=== PATIENT | male | born 1985 | race Two or more races ===

== ENCOUNTER 2019-07-13 15:12 | Emergency (ER) | payer MEDICAID, OTHER ==
[~2019-07-13] VITALS: Ht 175.3 cm; Wt 83.9 kg
[2019-07-13 15:24] VITALS: BP 147/98
[2019-07-13] MEDS ORDERED: KETOROLAC TROMETH 60MG/2ML VIAL IM ONE (16:30)
[2019-07-13] MEDS ORDERED: diphenhdrAMINE HCL 50 MG/1 ML VL IM ONE (16:30)
== END 2019-07-13 16:56 | disposition home or self-care (01) ==
LOC: ER 15:12
DX: S29.011A Strain of muscle and tendon of front wall of thorax, initial encounter (principal); V43.52XA Car driver injured in collision with other type car in traffic accident, initial encounter; Y93.I9 Activity, other involving external motion; Y92.410 Unspecified street and highway as the place of occurrence of the external cause; Y99.8 Other external cause status
CPT/HCPCS: 71101; 96372; 99283; J1200; J1885